=== PATIENT | female | born 1990 | race Caucasian/White ===

== ENCOUNTER 2017-01-01 11:13 | Emergency (ER) | payer BC, OTHER ==
[2017-01-01 11:39] VITALS: TEMP 98.5
[2017-01-01] MEDS ORDERED: Sodium Chloride 0.9% 1,000 ML PRIMARY IV ONE (11:54)
[2017-01-01] MEDS ORDERED: KETOROLAC 15 MG/1 ML VIAL IVP ONE (11:54)
[2017-01-01] MEDS ORDERED: NORMAL SALINE 10 ML SYRINGE FLUSH IVP PRN (11:54)
[2017-01-01] MEDS ORDERED: LORazepam 2 MG/1 ML VIAL IVP ONE (11:54)
--- NOTE | 2017-01-01 12:01 | PDOC ---
Neuro Symptoms / Deficit HPI - General Chief Complaint: Neurological Complaints Stated Complaint: NUMBNESS, TINGLING, DROOPING RIGHT FACE Date Seen by Provider: 01/01/17 Time Seen by Provider: 11:57 - History of Present Illness Initial Comments: Patient is very nice 26-year-old woman who presents to the emergency department with complaints of right sided facial numbness and a feeling of tingling and some fluttering of her I'll lids. She states she's never had symptoms like this before. She is able to smile she is able to critical her for head as well. She denies any pain in the side of her face. She states that this all started with a intense feeling of itchiness in her nose and some word sensation in her ear now she has this facial numbness and eyelash fluttering. This patient does have history of migraine headaches in the past has never had a typical migraines her migraines like this. She has had to be treated for migraines in the emergency department in the past. She has no other neurologic history all. Does not have an injury to her head or head trauma no or remote. - Patient Home Medications Home Medications: Home Medications Saliva Substitution Combo No.9 [Biotene] 237 ml MM DAILY 09/11/14 Vitamin B Complex [B Complex] 1 each PO DAILY 09/11/14 Miles-3/Dha/Epa/Fish Oil [Fish Oil 1,000 Mg Softgel] 1,000 mg PO DAILY cap Vitamin D3/Vitamin K2 [D3 + K2 Dots 1,000 Units Tab] 1 tab PO DAILY tab Epinephrine [Epipen 2-Cisco] 0.3 mg IM ASDIR #1 unit 11/25/15 RX: Ibuprofen 800 mg PO TID #30 tab 09/04/16 Etonogestrel [Nexplanon] 68 mg SQ ONCE 01/01/17 - Patient Allergies Allergies/Adverse Reactions: Allergies Allergy/AdvReac Type Severity Reaction Status Date / Time No Known Allergies Allergy Verified 01/01/17 11:15 Past Medical History - jaspreet HESUE History: Denies History Cardiovascular History: Denies History Additional Cardiovasular History: LOW BLOOD PRESSURE Respiratory History: Denies History Gastrointestinal History: Denies History Genitourinary History: Denies History Endocrine History: Denies History Musculoskeletal History: Other (please comment) Prosthesis or Implant: No Additional Musculoskeletal History: RIGHT HAND/WRIST SURGERY. 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 Blood Disorders: Denies History Psychiatric History: Depression History of Sexually Transmitted Diseases: No LMP: UNK Cancer History: Denies History In Past Year Been Physically Harmed or Verbally Threatened: No History of MDRO: No History of Other Communicable Diseases: No Tobacco Use: Never Smoker Alcohol Use: Rarely Substance Use Type: None Previous Surgical History: Yes Type / Date of Surgery: T&A/ LEFT KNEE SCOPE/ D&C/WIDSOM TEETH, RIGHT WRIST, BREAST AUGMENTATION Anesthesia Reactions: No Malignant Hyperthermia: No Significant Family History: No pertinent family hx Additional Family History: DEPRESSION. FATHER-DM Past Medical History Reviewed: Reviewed - No Changes ROS - Limitations ROS Limitations: No Limitations Constitution: REPORTS: Denies Symptoms Cardiovascular: REPORTS: Denies Cardiac Symptoms Respiratory: REPORTS: Denies Resp Symptoms Neuro Symptoms / Deficit Exam - General Appearance General Appearance: POSITIVE: No Acute Distress, Alert, Mild Distress - HEENT HEENT: POSITIVE: Head Inspection Nml, Eyes Inspection Nml, Ears Inspection Nml, Other (Patient does have some numbness on the right side when compared to left with light touch. She has intact facial muscle though she has obvious fluttering or occasional movement of her right eyelids.) - Neuro / Psych Higher Functions: POSITIVE: Oriented to Person, Oriented to Place, Oriented to Time, Normal Speech, Normal Cognition, Appropriate Mood Cranial Nerves: POSITIVE: Normal As Tested Cerebellar: POSITIVE: Normal As Tested Neuro Symptom/Deficit Progress - Patient's Progress MDM / ED Course: This patient is at onset of some very strange neurologic symptoms on the right side of her face. This is not consistent with Vaca's palsy as she still has intact movement with the exception of some eyelid fluttering on that right side. She does have some numbness there note other significant neurologic symptoms focally at all. At this point I think were going to assume this is an atypical migraine as she has had migraine headaches in the past certainly told her that if this does not sofie resolve fairly quickly she is here primary care provider for consideration of MRI of her head versus seeing neurologist. I don' t see any evidence of CVA or any other more worrisome or concerning problems therefore Eli go ahead and let her get discharged today with low threshold to return if she has any new or different symptoms. Patient Care Time - Estimated PCT Patient Care Time (In Minutes): 15 Vital Signs - Recent Vital Signs Vital Signs: Vital Signs (Last 8 hours) Temp Pulse Resp BP Pulse Ox 01/01/17 11:20 98.5 F 62 14 143/90 99 - VS Reviewed Vital Signs Reviewed: Yes Discharge Clinical Impression: Atypical migraine Discharge Disposition: Discharged to Home Condition: Stable Patient Instructions Given at Discharge: Migraine Headache (ED) Additional Instructions: Monitor symptoms closely. Follow-up with your primary care provider in the next 1-2 days for reevaluation Follow-up immediately with any worsening of symptoms or any other concerns Follow Up With: RYAN PHILLIPS FNP [Primary Care Provider] -
[2017-01-01 13:59] VITALS: RESP 16
== END 2017-01-01 13:07 | disposition home or self-care (01) ==
LOC: ER 11:13
DX: G43.009 Migraine without aura, not intractable, without status migrainosus (principal); R20.2 Paresthesia of skin
CPT/HCPCS: 96361; 96374; 96375; 99282; 99283; J1885; J2060; J7030

== ENCOUNTER → 2017-01-02 | Outpatient (CLI) | payer BC, OTHER ==
[2017-01-02 15:04] LABS: BASOPHILS # (AUTO) 0.02 10*3/UL; BASOPHILS % (AUTO) 0.2 % (0-1); EOSINOPHILS # (AUTO) 0.06 10*3/UL; EOSINOPHILS % (AUTO) 0.7 % (0-8); HEMATOCRIT 38.7 % (37.0-47.0); HEMOGLOBIN 12.8 g/dL (12.0-16.0); LYMPHOCYTES # (AUTO) 1.74 10*3/uL; MEAN CORPUSCULAR HEMOGLOBIN 30.1 PG (27-31); MEAN CORPUSCULAR HGB CONC 33.1 g/dL (33-37); MEAN CORPUSCULAR VOLUME 91.1 FL (81-99); MEAN PLATELET VOLUME 8.7 FL (7.4-12.2); MONOCYTES # (AUTO) 0.55 10*3/UL (0.3-0.8); MONOCYTES % (AUTO) 6.7 % (5-15); RED BLOOD COUNT 4.25 10^6/uL (4.20-5.40)
[2017-01-02 15:06] LABS: PLATELET MORPHOLOGY COMMENT NORMAL MORPHOLOGY (NORM); RBC MORPHOLOGY COMMENT NORMAL MORPHOLOGY (NORM); WBC MORPHOLOGY COMMENT NORMAL MORPHOLOGY (NORM)
[2017-01-02 15:16] LABS: BLOOD UREA NITROGEN 11 mg/dL (7-22); BUN/CREATININE RATIO 15.71 (6-20); EST GLOMERULAR FILTRATION > 60 (>60 ml/min/1.73m(2)); SERUM ALBUMIN 4.3 g/dL (3.5-4.8)
--- NOTE | 2017-01-03 08:37 | DI ---
CT HEAD SCAN WITHOUT IV CONTRAST, 01/02/2017 2:56 PM : Clinical History: Visual changes. Previous Exam: None at this facility. Scans are obtained from the foramen magnum to the vertex without IV contrast. The 4th, 3rd, and lateral ventricles are of normal size, shape, position, and contour for the patient 's age. There are no abnormal areas of increased or decreased density. 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 There is no evidence of an abnormality in the visual pathway from the occipital lobes to the orbits. There are no extracerebral mantles or shift of the midline structu res. Bone window evaluation is normal. The paranasal sinuses are normal. READING: Normal non contrast CT head scan. There is technically a type I Arnold-Chiari malformation involving only the right cerebellar tonsil and this minimal involvement would not be expected to cause any clin ical symptoms.
== END ==
LOC: CT 14:49
PROVIDERS: ATTEND Nurse Practitioner Family
DX: H53.9 Unspecified visual disturbance (principal); R42 Dizziness and giddiness; R53.83 Other fatigue; R11.0 Nausea; R20.0 Anesthesia of skin
CPT/HCPCS: 36415; 70450; 80053; 85025; 85379